=== PATIENT | female | born 1970 | race Caucasian/White ===

== ENCOUNTER → 2024-07-25 16:30 | Outpatient (REF) | payer BC, SELFPAY | LOC: RAD 16:30 | PROVIDERS: ATTENDING PHYSICIAN Urology; FAMILY PHYSICIAN Nurse Practitioner Family | DX: N95.8 Other specified menopausal and perimenopausal disorders (principal); N30.10 Interstitial cystitis (chronic) without hematuria; M62.89 Other specified disorders of muscle | CPT/HCPCS: 76770; 76856 ==